=== PATIENT | male | born 1965 | race African-American/Black ===

== ENCOUNTER 2017-03-15 16:17 | Emergency (ER) | payer MEDICAID ==
[~2017-03-15] VITALS: Ht 185.4 cm; Wt 105.0 kg
[2017-03-15] MEDS ORDERED: SODIUM CHLORIDE 0.9% 500 ML IV ONE (17:13)
[2017-03-15] MEDS ORDERED: ONDANSETRON HCL 4MG/2ML VIAL IV ONE (17:15)
[2017-03-15 17:45] LABS: BASOPHILS % 0.7 % (0.0-2.0); EOSINOPHILS % 5.3 % (0.0-5.0); HEMATOCRIT. 43.1 % (42.0-52.0); HEMOGLOBIN. 14.8 g/dL (14.0-18.0); LYMPHOCYTES % 39.9 % (20.0-50.0); MEAN CORPUSCULAR HEMOGLOBIN 29.5 pg (28.0-32.0); MEAN CORPUSCULAR VOLUME 85.8 fL (80.0-94.0); MEAN PLATELET VOLUME 8.5 fl (7.4-10.4); MONOCYTES % 10.8 % (2.0-8.0); NEUTROPHILS % 43.3 % (40.0-76.0); PLATELET 165 x1000/uL (130-400); RED BLOOD CELL COUNT 5.02 mill/uL (4.7-6.1); RED CELL DISTRIBUTION WIDTH 13.4 % (11.6-14.6)
[2017-03-15 17:52] LABS: CARBON DIOXIDE 28 mEq/L (21-32); CHLORIDE 106 mEq/L (98-107)
[2017-03-15 17:56] LABS: INR 1.1; PARTIAL THROMBOPLASTIN TIME 27.6 sec (24.0-34.0)
[2017-03-15 17:57] LABS: TROPONIN I < 0.02 ng/mL (0.00-0.04)
[2017-03-15 19:43] VITALS: BP 133/76
== END 2017-03-15 23:28 | disposition home or self-care (01) ==
LOC: ER 20:26
DX: R42 Dizziness and giddiness (principal); I10 Essential (primary) hypertension; R11.0 Nausea; E78.5 Hyperlipidemia, unspecified; J45.909 Unspecified asthma, uncomplicated; E78.00 Pure hypercholesterolemia, unspecified; Z88.8 Allergy status to other drugs, medicaments and biological substances
CPT/HCPCS: 36415; 71010; 80048; 84484; 85025; 85610; 85730; 93005; 96361; 96374; 99285; J2405; J7040; Z7610

== ENCOUNTER 2017-04-11 01:06 | Emergency (ER) | payer MEDICAID ==
[~2017-04-11] VITALS: Ht 185.4 cm; Wt 104.5 kg
[2017-04-11 01:20] VITALS: BP 122/70
== END 2017-04-11 05:12 | disposition left against medical advice (07) ==
LOC: ER 01:06
DX: I10 Essential (primary) hypertension (principal); Z53.21 Procedure and treatment not carried out due to patient leaving prior to being seen by health care provider
CPT/HCPCS: 93005

== ENCOUNTER 2017-05-31 03:07 | Emergency (ER) | payer MEDICAID, OTHER ==
[~2017-05-31] VITALS: Ht 185.4 cm; Wt 107.0 kg
[~2017-05-31 03:07] MED LIST: ALBU6.7H IH
[2017-05-31 03:43] VITALS: BP 129/81
[2017-05-31] MEDS ORDERED: ONDANSETRON 4MG ODT PO PRN (04:15)
== END 2017-05-31 06:50 | disposition home or self-care (01) ==
LOC: ER 03:07
DX: R11.0 Nausea (principal); I10 Essential (primary) hypertension; E78.00 Pure hypercholesterolemia, unspecified; Z88.8 Allergy status to other drugs, medicaments and biological substances; Z86.011 Personal history of benign neoplasm of the brain; J45.909 Unspecified asthma, uncomplicated; Z88.6 Allergy status to analgesic agent
CPT/HCPCS: 93005; 99283; Q0162

== ENCOUNTER 2017-07-25 01:00 | Emergency (ER) | payer MEDICAID ==
[~2017-07-25] VITALS: Ht 182.9 cm; Wt 107.0 kg
[2017-07-25 02:31] LABS: BASOPHILS % 0.8 % (0.0-2.0); EOSINOPHILS % 5.9 % (0.0-5.0); HEMATOCRIT. 44.5 % (42.0-52.0); HEMOGLOBIN. 15.3 g/dL (14.0-18.0); LYMPHOCYTES % 48.3 % (20.0-50.0); MEAN CORPUSCULAR HEMOGLOBIN 29.9 pg (28.0-32.0); MEAN CORPUSCULAR VOLUME 86.6 fL (80.0-94.0); MEAN PLATELET VOLUME 8.5 fl (7.4-10.4); MONOCYTES % 8.7 % (2.0-8.0); NEUTROPHILS % 36.3 % (40.0-76.0); PLATELET 174 x1000/uL (130-400); RED BLOOD CELL COUNT 5.13 mill/uL (4.7-6.1); RED CELL DISTRIBUTION WIDTH 13.2 % (11.6-14.6)
[2017-07-25 02:40] LABS: D-DIMER 0.61 mg/L FEU (<0.50); INR 1.1; PROTHROMBIN TIME 10.9 sec (9.4-11.6)
[2017-07-25] MEDS: ASPIRIN 81MG TABLET PO ONE (02:40)
[2017-07-25 02:48] LABS: CARBON DIOXIDE 25 mEq/L (21-32); CHLORIDE 105 mEq/L (98-107); ETHANOL BLOOD < 10 mg/dL; TROPONIN I < 0.02 ng/mL (0.00-0.04)
[2017-07-25 07:13] VITALS: BP 133/91
== END 2017-07-25 07:15 | disposition home or self-care (01) ==
LOC: ER 01:00
DX: J40 Bronchitis, not specified as acute or chronic (principal); R20.2 Paresthesia of skin; J45.909 Unspecified asthma, uncomplicated; E78.00 Pure hypercholesterolemia, unspecified; R00.0 Tachycardia, unspecified; I10 Essential (primary) hypertension; Z88.8 Allergy status to other drugs, medicaments and biological substances; Z86.011 Personal history of benign neoplasm of the brain
CPT/HCPCS: 36415; 71010; 72125; 80053; 83605; 83690; 83880; 84484; 85025; 85379; 85610; 93005; 99285; G0482; Z7610